=== PATIENT | female | born 1955 | race Caucasian/White ===

== ENCOUNTER 2023-07-28 20:43 | Emergency (ER) | payer MEDICARE, BC ==
[2023-07-28] MEDS: Clindamycin HCl 150 MG Cap PO ONE (20:58)
[2023-07-28] MEDS: Ketorolac 30 MG/ML SDV IM ONE (20:59)
== END 2023-07-28 21:10 | disposition home or self-care (01) ==
LOC: VM.ED 20:43
DX: L03.032 Cellulitis of left toe (principal); Z88.0 Allergy status to penicillin; Z88.2 Allergy status to sulfonamides
CPT/HCPCS: 96372; 99283; A9270; J1885